=== PATIENT | male | born 1995 | race Caucasian/White ===

== ENCOUNTER 2022-02-17 19:22 | Emergency (ER) | payer SELFPAY ==
[~2022-02-17] VITALS: Ht 172.7 cm; Wt 84.6 kg
[2022-02-17 19:28] VITALS: BP 128/84
[2022-02-18] MEDS ORDERED: ONDANSETRON 4MG ODT PO STA (02:50)
[2022-02-18 03:08] LABS: BASOPHILS % 0.5 % (0.0-2.0); EOSINOPHILS % 1.5 % (0.0-5.0); HEMATOCRIT. 42.3 % (42.0-52.0); HEMOGLOBIN. 14.8 g/dL (14.0-18.0); LYMPHOCYTES % 22.9 % (20.0-50.0); MEAN CORPUSCULAR HEMOGLOBIN 29.2 pg (28.0-32.0); MEAN CORPUSCULAR VOLUME 83.4 fL (80.0-94.0); MEAN PLATELET VOLUME 7.3 fl (7.4-10.4); NEUTROPHILS % 66.1 % (40.0-76.0); PLATELET 334 x1000/uL (130-400); RED BLOOD CELL COUNT 5.07 mill/uL (4.7-6.1); RED CELL DISTRIBUTION WIDTH 12.9 % (11.6-14.6)
[2022-02-18 03:15] LABS: CHLORIDE 107 mEq/L (98-107)
[2022-02-18] MEDS ORDERED: MAGNESIUM/ALUMINUM HYDROXIDE/SIMETHICONE 30ML UDC PO ONE (03:15)
[2022-02-18] MEDS ORDERED: OMEP20TA15 MT (03:31)
[2022-02-18] MEDS ORDERED: ONDA4TAB11 PO (03:33)
== END 2022-02-18 04:00 | disposition home or self-care (01) ==
LOC: ER 19:22
DX: K29.70 Gastritis, unspecified, without bleeding (principal); R94.31 Abnormal electrocardiogram [ECG] [EKG]
CPT/HCPCS: 36415; 80053; 83690; 85025; 93005; 99284; Q0162